=== PATIENT | male | born 1985 | race Caucasian/White ===

== ENCOUNTER 2024-08-02 23:13 | Emergency (ER) | payer BC, SELFPAY ==
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
--- OUTSIDE RECORDS SUMMARY | 2024-08-02 23:15 | XMS_ITS | Clinical Summary ---
Author Organization [facility] Address [address] [place] [address] Care Team Providers Care Room Service Waiter Name Role Phone Unavailable Primary Care Provider Unavailabl e Social History Tobacco Use Types Packs/Day Years Used Date Smoking Tobacco: Never Assessed Sex and Gender Information Value Date Recorded Sex Assigned at Not on file Legal Sex Male 7:29 PM CDT Gender Identity Not on file Sexual Orientation Not on file Plan of Treatment Health Maintenance Due Date Last Done Comments Annual Physical 1988 Hepatitis C 2003 DTaP, Tdap and Td Vaccines ( 1 - Tdap) 2004 Hepatitis B Vaccines (1 of 3 - 19+ 3-dose series) 2004 COVID-19 Vaccine ( - 2023-2 5 season) 2023 HPV Vaccines Aged Out No longer eligi ble based on patient's age to complete this topic Meningococcal B Vaccine Aged Out No l onger eligible based on patient's age to complete this topic Meningococcal Vaccine Aged Out No irma isa eligible based on patient's age to complete this topic Pneumococcal Vaccine: Pediat rics (0 to 5 Years) and At-Risk Patients (6 to 49 Years) Aged Out No longer eligible b ased on patient's age to complete this topic RSV Immunizations Under 20 Months Aged Out No longer eligible based on patient's age to complete this topic
--- OUTSIDE RECORDS SUMMARY | 2024-08-02 23:15 | XMS_ITS | Clinical Summary ---
Author Organization [facility] [place] [address] Address [address] [place] [address] Care Team Providers Care Sign Hanger Name Role Phone Gerald Shaw MD Primary Care Provider [phone] Allergies No known active allergies Medications amLODIPine (NORVASC) 10 mg tablet 1 tablet daily 2 11/09/2018 Active lisinopril (PRINIVIL,ZESTRI L) 10 mg tablet 1 tablet daily 1 11/09/2018 Active Active Problems Problem Noted Date Diagnosed Date Hypertension 11/14/2018 Medical History Medical History Date Comments Hypertension Family History Medical History Relation Name Comments Hypertension Father Relation Name Status Comments Father Alive Mother (Age 50) OVERDOSE Social History Tobacco Use Types Packs/Day Years Used Date Smoking Tobacco: Never Smokeless Tobacco: Never Tobacco Cessation:Counseling Given: Yes Alcohol Use Standard Drinks/Week Comments Not Currently 0 (1 standard drink = 0.6 oz pur e alcohol) Personal Safety Answer Date Recorded Getting School Help Needed Not on file 06/21 Sex and Gender Information Value Date Recorded Sex Assigned at Not on file 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 Gender Identity Not on file Sexual Orientation Not on file Obstetrics History Last Filed Vital Signs Vital Sign Reading Time Taken Comments Blood Pressure 112/76 11/29/2018 8:28 AM CDT Pulse 75 11/29/2018 8:28 AM CDT Temperature - - Respiratory Rate - - Oxygen Saturation 98% 11/29/2018 8:28 AM CDT Inhaled Oxygen Concentration - - Weight 98.3 kg (216 lb 12.8 oz) 11/29/2018 8:28 AM CDT Height 182.9 cm (6') 11/29/2018 8:28 AM CDT Body Mass Index 29.4 11/29/2018 8:28 AM CDT Plan of Treatment Not on file Insurance [email or web address] HMO Care Teams Sign Hanger Relationship Specialty Start Date End Date Gerald Shaw MD PCP - General Emergency Medicine 10/15/18
--- OUTSIDE RECORDS SUMMARY | 2024-08-02 23:15 | XMS_ITS | Clinical Summary ---
Author Organization [facility] Address [address] [place] [address] Care Team Providers Care Electrolysis Engineer Name Role Phone Gerald Shaw MD Primary Care Provider [phone] Source Comments [facility],non-owned Affiliates and Associated Physician Practices is amultiple site organization consisting of ambulatory clinics and hospital sitesin [place], [place], [place] and [place]. This disclosure is being madepursuant to the Care Everywhere program and may not contain all information available regarding this patient. Last updated 17.[facility] Allergies No known active allergies Medications * Be aware that medications may not be up to date on this document. Alwaysverify current medications with the patient. amLODIPine (NORVASC) 10 MG tablet Take 10 mg by mouth once daily 09/01/2020 Active lisinopril (PRINIVIL; ZESTRIL) 10 MG tablet Take 10 mg by mouth once daily 09/01/2020 Active Family History Medical History Relation Name Comments Hypertension Brother Hypertension Father Hypertension Maternal Grandfather Hypertension Maternal Grandmother Hypertension Mother Hypertension Sister Relation Name Status Comments Brother Father Maternal Grandfather Maternal Grandmother Mother Sister Social History Tobacco Use Types Packs/Day Years Used Date Smoking Tobacco: Never Smokeless Tobacco: Never Alcohol Use Standard Drinks/Week Comments Not Currently 0 (1 standard drink = 0.6 oz pur e alcohol) Sex and Gender Information Value Date Recorded Sex Assigned at Not on file Legal Sex Male 3:22 PM CDT Gender Identity Not on file Sexual Orientation Not on file Last Filed Vital Signs Vital Sign Reading Time Taken Comments Blood Pressure 121/86 12/17/2020 1:12 PM CDT Pulse 77 12/17/2020 1:12 PM CDT Temperature 35.8 C (96.5 F) 10/20/2020 9:08 AM CDT Respiratory Rate 18 10/20/2020 9:08 AM CDT Oxygen Saturation 100% 12/17/2020 1:12 PM CDT Inhaled Oxygen Concentration - - Weight 93 kg (205 lb) 12/17/2020 1:12 PM CDT Height 182.9 cm (6') 12/17/2020 1:12 PM CDT Body Mass Index 27.8 12/17/2020 1:12 PM CDT Plan of Treatment Health Maintenance Due Date Last Done Comments HIV SCREENING 2000 HEPATITIS C SCREENING 04/02/2003 DTAP/TDAP/TD VACCINES (1 - Tdap) 2004 HEPATITIS B VACCINE (1 of 3 - 19+ 3-dose series) 2004 COVID-19 VACCINE (1 - 2023-2 5 season) 2023 DEPRESSION SCREENING 04/09/2024 INFLUENZA VACCINE (Season Ended) 2024 ZOSTER VACCINE (1 of 2) 2035 HIB VACCINE Aged Out No longer eligi ble based on patient's age to complete this topic HPV VACCINE Aged Out No longer eligi ble based on patient's age to complete this topic MENINGOCOCCAL (Group B) VACC INE SHARED DECISION-MAKING Aged Out No longer eligibl e based on patient's age to complete this topic MENINGOCOCCAL GROUPS A/C/Y/W VACCINE Aged Out No longer eligible b ased on patient's age to complete this topic PNEUMOCOCCAL VACCINE Aged Out No long er eligible based on patient's age to complete this topic Insurance [employer] Care Teams Electrolysis Engineer Relationship Specialty Start Date End Date Gerald Shaw MD [address] [place] [address] PCP - General 09/10/20
--- OUTSIDE RECORDS SUMMARY | 2024-08-02 23:15 | XMS_ITS | Encounter Summary ---
Author Organization [facility] Address [address] [place] [address] Care Team Providers Care Business Services Sales Agent Name Role Phone Gerald Shaw MD Primary Care Provider [phone] Reason for Visit * Reason Onset Date Comments Appointment 12/16/2020 Encounter Details Date Type Department Care Team (Late st Contact Info) Description 12/16/2020 Telephone [facility] [address] [place] [address] Concepcion Morfin Appointment Social History Tobacco Use Types Packs/Day Years Used Date Smoking Tobacco: Never Smokeless Tobacco: Never Alcohol Use Standard Drinks/Week Comments Not Currently 0 (1 standard drink = 0.6 oz pur e alcohol) Sex and Gender Information Value Date Recorded Sex Assigned at Not on file Legal Sex Male 3:22 PM CDT Gender Identity Not on file Sexual Orientation Not on file documented as of this encounter Miscellaneous Notes * Telephone Encounter - Concepcion Morfin - 12/16/2020 2:07 PM CDT Call patient to remind him to bring a delivery driver assistant.I also said that the delivery driver assistant has to been seen by regqi first before the procedure begins documented in this encounter Plan of Treatment Not on file documented as of this encounter Visit Diagnoses Not on filedocumented in this encounter Care Teams Business Services Sales Agent Relationship Specialty Start Date End Date Gerald Shaw MD [facility] [address] [place] [address] PCP - General 09/10/20 documented as of this encounter
--- OUTSIDE RECORDS SUMMARY | 2024-08-02 23:15 | XMS_ITS | Referral Summary ---
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
[2024-08-02 23:37] VITALS: BP 161/98; PULSE 98; RESP 97; TEMP 36.1; O2SAT 97
[2024-08-03] VITALS (12 sets, daily range): BP systolic 142–152; BP diastolic 100–108; PULSE 79–92; RESP 13–18; O2SAT 96–99
--- OUTSIDE RECORDS SUMMARY | 2024-08-03 03:23 | XMS_ITS | Referral Summary ---
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
--- OUTSIDE RECORDS SUMMARY | 2024-08-03 03:23 | XMS_ITS | Clinical Summary ---
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
--- OUTSIDE RECORDS SUMMARY | 2024-08-03 03:23 | XMS_ITS | Clinical Summary ---
Author Organization [facility] [employer] Address [address] [place] [address] Care Team Providers Care Revising Clerk Name Role Phone Gerald Shaw MD Primary Care Provider [phone] Source Comments [facility] [employer],non-owned Affiliates and Associated Physician Practices is amultiple site organization consisting of ambulatory clinics and hospital sitesin [place], [place], [place] and [place]. This disclosure is being madepursuant to the Care Everywhere program and may not contain all information available regarding this patient. Last updated 17.[facility] [employer] Allergies No known active allergies Medications * [...] complete this topic Insurance M[employer]EL Care Teams Revising Clerk Relationship Specialty Start Date End Date Gerald Shaw MD [address] [place] [address] PCP - General 09/10/20
--- OUTSIDE RECORDS SUMMARY | 2024-08-03 03:23 | XMS_ITS | Clinical Summary ---
Author Organization [facility] Address [address] [place] [address] Care Team Providers Care Professor Of Radiology Name Role Phone Unavailable Primary Care Provider [...]
--- OUTSIDE RECORDS SUMMARY | 2024-08-03 03:23 | XMS_ITS | Encounter Summary ---
Author Organization [facility] Address [address] [place] [address] Care Team Providers Care Overhead Door Technician Name Role Phone Gerald Shaw MD Primary Care Provider [phone] Reason for Visit * Reason Onset Date Comments Appointment 12/16/2020 Encounter Details Date Type Department Care Team (Late st Contact Info) Description 12/16/2020 Telephone [facility] [address] [place] [address] Concepcion Morfin Appointment Social History Tobacco Use [...] patient to remind him to bring a rail car driver.I also said that the rail car driver has to been seen by regqi first before the procedure begins documented in this encounter Plan of Treatment Not on file documented as of this encounter Visit Diagnoses Not on filedocumented in this encounter Care Teams Overhead Door Technician Relationship Specialty Start Date End Date Gerald Shaw MD [facility] [address] [place] [address] PCP - General 09/10/20 documented as of this encounter
[2024-08-03] MEDS: HYDROmorphone HCL INJ (*CRX) 2 MG/ML VIAL 0.5 MG IV PUSH (04:19)
[2024-08-03] MEDS: ACETAMINOPHEN 500 MG TABLET 1000 MG PO (04:20)
[2024-08-03] MEDS: IBUPROFEN 400 MG TABLET 800 MG PO (04:20)
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
--- NOTE | 2024-08-03 07:08 | PC.NURSE ---
Pt reports he is picking up his BP medicine later today. States he has not been taking his med for 2 days that is why it is high. Pt states this is his normal w/out it.
--- NOTE | 2024-08-03 13:28 | PC.NURSE ---
attempted to reach out to pt about imaging LVM related to call back for updated POC
== END 2024-08-03 07:11 | disposition home or self-care (01) ==
PROVIDERS: Emergency Provider Emergency Medicine; PCP Emergency Medicine
DX: S22.051A Stable burst fracture of T5-T6 vertebra, initial encounter for closed fracture (principal); V86.59XA Driver of other special all-terrain or other off-road motor vehicle injured in nontraffic accident, initial encounter
CPT/HCPCS: 71110; 71250; 72072; 96374; 99284; A9270; J1171